=== PATIENT | female | born 1985 | race African-American/Black ===

== ENCOUNTER 2018-10-14 22:25 | Emergency (ER) | payer OTHER ==
[~2018-10-14] VITALS: Ht 172.7 cm; Wt 88.5 kg
[2018-10-14 22:33] VITALS: BP 139/85
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
== END 2018-10-14 22:49 | disposition home or self-care (01) ==
LOC: ER 22:25
DX: M79.602 Pain in left arm (principal); G89.11 Acute pain due to trauma; V98.8XXA Other specified transport accidents, initial encounter; Y92.481 Parking lot as the place of occurrence of the external cause; Y93.39 Activity, other involving climbing, rappelling and jumping off; Y99.8 Other external cause status
CPT/HCPCS: 99281